=== PATIENT | male | born 1965 | race Caucasian/White ===

== ENCOUNTER → 2018-02-05 | Outpatient (CLI) | payer BC ==
[~2018-02-05] MED LIST: ASP81 PO; ATOR20TA22 PO; ATR10 PO; CELE-1 PO; CLO75 PO; ENO100I SC; ENOX60DI8 SQ; IBU600 PO; IBU800 PO; LISI-362 PO; LOR5 PO; LOR5/325 PO; METXL50 PO; MULT-820 PO; PLAVIX
--- NOTE | 2018-02-05 16:57 | RADIOLOGY IMAGING REPORT ---
FACILITY: [facility] [place] PATIENT NAME: Ole Terry : 1965 MR: [id number] V: [id number] EXAM DATE: ORDERING PHYSICIAN: MARYJO DUDLEY TECHNOLOGIST: Location: [facility] [place] Patient: Ole Terry : 1965 Visit/Account:[id number] Date of Sevice: 02/05/2018 Exam type: VENOUS DOPP LOW LEFT EXTREMITY History: Left leg pain Comparison: None. Findings: The left lower extremity veins were imaged including the left common femoral vein greater saphenous v ein superficial femoral vein popliteal vein anterior tibial veins and peroneal veins were compressibl e and demonstrated augmentation. There was however thrombus in the noncompressible posterior tibial veins. IMPRESSION: 1. Findings are consistent with DVT in the left posterior tibial veins. Results were called to MARYJO DUDLEY at 02/05/2018 4:45 PM. Report Dictated By: Estella Prieto MD at 02/05/2018 4:48 PM Report E-Signed By: Estella Prieto MD at 02/05/2018 4:53 PM WSN:[email or web address]
== END ==
LOC: US 15:28
PROVIDERS: ATTEND Nurse Practitioner Family
DX: I82.442 Acute embolism and thrombosis of left tibial vein (principal)

== ENCOUNTER → 2018-02-05 | Outpatient (REF) | payer BC ==
[2018-02-05 18:14] LABS: PLATELET COUNT, AUTOMATED 119 K/uL (150-450)
[2018-02-05 18:24] LABS: INR 1.03
== END ==
PROVIDERS: ATTEND Nurse Practitioner Family
DX: D68.9 Coagulation defect, unspecified (principal)
CPT/HCPCS: 82040; 82247; 82310; 82374; 82435; 82565; 82947; 84075; 84132; 84153; 84155; 84295; 84450; 84460; 84520; 85025; 85610; 85730

== ENCOUNTER → 2018-02-22 | Outpatient (CLI) | payer BC ==
--- NOTE | 2018-02-22 16:35 | RADIOLOGY IMAGING REPORT ---
FACILITY: [facility] - [place] PATIENT NAME: Ole Terry : 1965 MR: [id number] V: [id number] EXAM DATE: ORDERING PHYSICIAN: LIA WAKEFIELD TECHNOLOGIST: Location: [facility] Patient: Ole Terry : 1965 Visit/Account:[id number] Date of Sevice: 02/22/2018 Left Lower Extremity Doppler Ultrasound HISTORY: Follow-up left lower extremity DVT in the posterior tibial veins. COMPARISON: Left lower extremity Doppler ultrasound 02/05/2018 FINDINGS: Grayscale, duplex and color Doppler interrogation of the left lower extremity deep veins from common femoral vein to proximal calf was completed. The greater saphenous vein in the left proximal thigh wa s evaluated using similar technique. Common femoral vein - Negative. Femoral vein - Negative. Deep femoral vein - Negative. Popliteal vein - Negative. Visualized deep calf veins - continued thrombus in one of two posterior tibial veins. The mid and di stal peroneal veins are filled with thrombus and are noncompressible. One of two anterior tibial vei ns in the distal calf is noncompressible. Popliteal fossa: Negative. Greater saphenous vein in the proximal thigh: Negative. IMPRESSION: Persistent deep venous thrombosis in the deep veins of the calf. There is no evidence of DVT extensi on into the popliteal vein or above the knee. Report Dictated By: Francine Vickers MD at 02/22/2018 4:15 PM Report E-Signed By: Francine Vickers MD at 02/22/2018 4:32 PM WSN:[email or web address]
--- NOTE | 2018-02-22 20:04 | RADIOLOGY IMAGING REPORT ---
FACILITY: [facility] PATIENT NAME: Ole Terry : 1965 MR: [id number] V: [id number] EXAM DATE: ORDERING PHYSICIAN: LIA WAKEFIELD TECHNOLOGIST: [facility] Patient: Ole Terry : 1965 Visit/Account:[id number] Date of Sevice: 02/22/2018 Left lower extremity arterial Doppler duplex ultrasound scan. HISTORY: Decreased pedal pulses. COMPARISON: None. A color flow Doppler duplex ultrasound scan with spectral analysis was performed on the left lower ex tremity. PEAK SYSTOLIC ARTERIAL VELOCITIES: Left common femoral artery: 88 cm/s. Left profunda femoris artery: 33 cm/s. Left superficial femoral artery: 76 cm/s. Left popliteal artery: 47 cm/s. Left dorsalis pedis artery: 26 cm/s. Left posterior tibial artery: 28 cm/s. Triphasic waveforms are present diffusely in the left lower extremity. Segmental limb pressures were not performed. IMPRESSION: Negative for evidence of significant occlusive arterial disease in the left leg. COMMENT: Segmental limb pressures were not performed which limits sensitivity of the examination for occlusive arterial disease. Report Dictated By: Riley Jane MD at 02/22/2018 7:51 PM Report E-Signed By: Riley Jane MD at 02/22/2018 8:01 PM WSN:[email or web address]
== END ==
LOC: US 13:58
PROVIDERS: ATTEND Family Medicine
DX: I82.442 Acute embolism and thrombosis of left tibial vein (principal)

== ENCOUNTER → 2018-06-18 | Outpatient (CLI) | payer OTHER, BC ==
--- NOTE | 2018-06-18 17:16 | RADIOLOGY IMAGING REPORT ---
[place] [facility] [place] NAME: Ole Terry : 1965 MR: [id number] V: [id number] EXAM DATE: ORDERING PHYSICIAN: MARYJO NAPIER TECHNOLOGIST: Location: [facility] Patient: Ole Terry : 1965 Visit/Account:[id number] Date of Sevice: 06/18/2018 Exam type: US VENOUS LOWER EXT LT History: History of left DVT Comparison: February 22, 2018. Findings: The left lower extremity veins were imaged including the left common femoral vein greater saphenous v ein superficial femoral vein popliteal vein posterior tibial vein peroneal vein anterior tibial vein revealing no evidence of intraluminal thrombi the veins were compressible and demonstrated augmentati on. Soft tissue edema was noted over the left lower extremity IMPRESSION: 1. No sonographic evidence DVT involving the left lower extremity veins Soft tissue edema noted over the left lower extremity Report Dictated By: Estella Prieto MD at 06/18/2018 5:08 PM Report E-Signed By: Estella Prieto MD at 06/18/2018 5:10 PM WSN:[email or web address]
== END ==
LOC: US 00:29 → EDSTATUS 00:39
PROVIDERS: ATTEND Family Medicine
DX: M79.89 Other specified soft tissue disorders (principal)